=== PATIENT | female | born 1930 | race Caucasian/White ===

== ENCOUNTER 2017-08-28 22:14 | Inpatient (IN) | payer OTHER ==
[~2017-08-28] VITALS: Ht 152.4 cm; Wt 88.0 kg
[2017-08-28 23:10] LABS: BASOPHIL % 0.5 % (0-2); PLATELET COUNT 201 x10^3mcL (130-400)
[2017-08-28 23:33] LABS: ALKALINE PHOSPHATASE 56 U/L (46-116); ALT/SGPT 34 U/L (14-59); AST/SGOT 33 U/L (15-37); BILIRUBIN TOTAL 0.2 mg/dL (0.20-1.00); CALCIUM 9.4 mg/dL (8.5-10.1); CARBON DIOXIDE 26.4 mmol/L (21-32); CHLORIDE SERUM 107 mmol/L (98-107); CREATININE SERUM 1.5 mg/dL (0.6-1.0); POTASSIUM SERUM 3.3 mmol/L (3.5-5.1); SODIUM SERUM 144 mmol/L (136-145); TOTAL PROTEIN, SERUM 7.3 g/dL (6.4-8.2)
[2017-08-28 23:37] LABS: ALBUMIN 3.1 g/dL (3.4-5.0); CK-MB 0.7 ng/mL (0-3.6)
[2017-08-28 23:40] LABS: GLUCOSE SERUM 37 mg/dL (74-106)
[2017-08-29] MEDS ORDERED: LEVEMIR FLEX100 U/M1 SC (00:38)
[2017-08-29] MEDS ORDERED: ZESTRIL10 MG PO (00:39)
[2017-08-29] MEDS ORDERED: NOVOLOG FLEX100 U/M1 SC (00:39)
[2017-08-29] MEDS ORDERED: PROZ20 PO (00:40)
[2017-08-29] MEDS ORDERED: GABAPENTIN300 M4 GT (00:40)
[2017-08-29] MEDS ORDERED: CLOPIDOGREL75 M1 PO (00:41)
[2017-08-29] MEDS ORDERED: CALCIUM CITRATE1 TAB PO (00:42)
[2017-08-29] MEDS ORDERED: COD LIVER OIL PO (00:42)
[2017-08-29] MEDS ORDERED: ASPIR 8181 MG PO (00:43)
[2017-08-29] MEDS ORDERED: B COMPLEX1 SGL PO (00:43)
[2017-08-29] MEDS ORDERED: LIPITOR40 MG PO (00:44)
[2017-08-29] MEDS ORDERED: FERROUS SULFAT325 M2 PO (00:44)
[2017-08-29] MEDS ORDERED: CEPHALEXIN500 MG PO (00:45)
[2017-08-29 01:34] VITALS: BP 156/44
[2017-08-29 02:54] LABS: T3 TOTAL 1.08 ng/mL
[2017-08-29 02:56] LABS: RED BLOOD CELLS 3.21 M/mm3 (4.10-5.10)
[2017-08-29 02:57] LABS: FREE T4 0.89 ng/dL (0.76-1.46); FREE THYROXINE INDEX 2.3 ug/dL (1.4-4.5); T4(THYROXINE) 6.8 ug/dL (4.7-13.3)
[2017-08-29 03:08] LABS: MAGNESIUM 2.2 mg/dL (1.8-2.4); PHOSPHOROUS 3.4 mg/dL (2.5-4.9)
[2017-08-29 03:15] LABS: IRON 110 ug/dL (50-170); TOTAL IRON BINDING CAPACITY 364 ug/dL (250-450)
[2017-08-29 04:01] LABS: CHOLESTEROL/HDL RATIO 1.5
[2017-08-29 06:13] VITALS: BP 150/51
[2017-08-29 08:28] LABS: microscopic required? YES; urine erythrocyte 1+ (NEGATIVE)
[2017-08-29 08:50] VITALS: BP 132/65
[2017-08-29 11:40] VITALS: BP 124/40
[2017-08-29 13:33] LABS: BASOPHIL % 0.1 % (0-2); PLATELET COUNT 169 x10^3mcL (130-400); RED CELL DISTRIBUTION WIDTH 13.9 % (11.5-14.5)
[2017-08-29 13:34] LABS: CALCIUM 8.1 mg/dL (8.5-10.1); CARBON DIOXIDE 27.2 mmol/L (21-32); CHLORIDE SERUM 104 mmol/L (98-107); CREATININE SERUM 1.5 mg/dL (0.6-1.0); GLUCOSE SERUM 260 mg/dL (74-106); SODIUM SERUM 138 mmol/L (136-145)
[2017-08-29 13:49] LABS: POTASSIUM SERUM 5.6 mmol/L (3.5-5.1)
[2017-08-29 17:04] LABS: CALCIUM 8.3 mg/dL (8.5-10.1); CARBON DIOXIDE 26.2 mmol/L (21-32); CHLORIDE SERUM 106 mmol/L (98-107); CREATININE SERUM 1.4 mg/dL (0.6-1.0); GLUCOSE SERUM 205 mg/dL (74-106); SODIUM SERUM 139 mmol/L (136-145)
[2017-08-29 17:07] LABS: POTASSIUM SERUM 5.7 mmol/L (3.5-5.1)
[2017-08-29 18:13] VITALS: BP 130/47
[2017-08-29] MEDS ORDERED: LEVEMIR FLEX100 U/M1 SQ (18:23)
[2017-08-29] MEDS ORDERED: NOVOLOG FLEX100 U/M1 SQ (18:24)
[2017-08-29 21:14] VITALS: BP 127/49
[2017-08-30 05:19] VITALS: BP 127/46
[2017-08-30 07:41] LABS: CALCIUM 7.8 mg/dL (8.5-10.1); CARBON DIOXIDE 25.4 mmol/L (21-32); CHLORIDE SERUM 107 mmol/L (98-107); CREATININE SERUM 1.4 mg/dL (0.6-1.0); GLUCOSE SERUM 221 mg/dL (74-106); POTASSIUM SERUM 4.6 mmol/L (3.5-5.1); SODIUM SERUM 141 mmol/L (136-145)
[2017-08-30 07:51] LABS: BASOPHIL % 0.4 % (0-2); PLATELET COUNT 154 x10^3mcL (130-400); RED CELL DISTRIBUTION WIDTH 14.3 % (11.5-14.5)
[2017-08-30 09:22] VITALS: BP 145/46
[2017-08-30 12:43] VITALS: BP 148/53
[2017-08-30 12:44] VITALS: Ht 152.4 cm; Wt 88.0 kg
[2017-08-30 17:14] VITALS: BP 172/55
[2017-08-30 21:37] VITALS: BP 121/46
[2017-08-31 05:14] VITALS: BP 141/57
[2017-08-31 07:14] LABS: BASOPHIL % 0.4 % (0-2); PLATELET COUNT 140 x10^3mcL (130-400); RED CELL DISTRIBUTION WIDTH 14.3 % (11.5-14.5)
[2017-08-31 07:32] LABS: CALCIUM 8.4 mg/dL (8.5-10.1); CARBON DIOXIDE 24.6 mmol/L (21-32); CHLORIDE SERUM 107 mmol/L (98-107); CREATININE SERUM 1.6 mg/dL (0.6-1.0); GLUCOSE SERUM 217 mg/dL (74-106); MAGNESIUM 1.9 mg/dL (1.8-2.4); PHOSPHOROUS 3.8 mg/dL (2.5-4.9); POTASSIUM SERUM 4.4 mmol/L (3.5-5.1); SODIUM SERUM 141 mmol/L (136-145)
[2017-08-31 14:11] VITALS: BP 96/65
[2017-08-31 16:29] VITALS: BP 89/40
[2017-08-31 21:53] VITALS: BP 132/66
[2017-09-01 01:38] LABS: PLATELET COUNT 147 x10^3mcL (130-400); RED CELL DISTRIBUTION WIDTH 13.5 % (11.5-14.5)
[2017-09-01 02:05] LABS: ALKALINE PHOSPHATASE 50 U/L (46-116); ALT/SGPT 14 U/L (14-59); AST/SGOT 42 U/L (15-37); BILIRUBIN TOTAL 0.41 mg/dL (0.20-1.00); CALCIUM 8.4 mg/dL (8.5-10.1); CARBON DIOXIDE 22.1 mmol/L (21-32); CHLORIDE SERUM 103 mmol/L (98-107); CREATININE SERUM 2.3 mg/dL (0.6-1.0); GLUCOSE SERUM 256 mg/dL (74-106); POTASSIUM SERUM 4.3 mmol/L (3.5-5.1); SODIUM SERUM 137 mmol/L (136-145); TOTAL PROTEIN, SERUM 6.4 g/dL (6.4-8.2)
[2017-09-01 02:22] LABS: ALBUMIN 2.5 g/dL (3.4-5.0)
[2017-09-01 02:42] LABS: BAND NEUTROPHIL 7 % (0-10); BASOPHIL 0 % (0-2); MONOCYTE 3 % (0-7); SEGMENTED NEUTROPHILS 89 % (37-75)
[2017-09-01 02:46] LABS: PLATELET MORPHOLOGY PLATELETS NORMAL
[2017-09-01 02:48] LABS: rbc morphology (normal/abnorm) ABNORMAL (NORMAL)
== END 2017-09-01 04:10 | disposition expired | DRG 917 ==
LOC: ED 22:14 → DU 08-29 00:05
PROVIDERS: Emergency Medicine; Family Medicine; Student in an Organized Health Care Education/Training Program
DX: T38.3X1A Poisoning by insulin and oral hypoglycemic [antidiabetic] drugs, accidental (unintentional), initial encounter (principal); N17.0 Acute kidney failure with tubular necrosis; G93.41 Metabolic encephalopathy; J69.0 Pneumonitis due to inhalation of food and vomit; K85.90 Acute pancreatitis without necrosis or infection, unspecified; E44.0 Moderate protein-calorie malnutrition; N39.0 Urinary tract infection, site not specified; D68.69 Other thrombophilia; E11.649 Type 2 diabetes mellitus with hypoglycemia without coma; E11.65 Type 2 diabetes mellitus with hyperglycemia; M94.0 Chondrocostal junction syndrome [Tietze]; E86.0 Dehydration; E11.51 Type 2 diabetes mellitus with diabetic peripheral angiopathy without gangrene; E11.42 Type 2 diabetes mellitus with diabetic polyneuropathy; D64.9 Anemia, unspecified; Z68.39 Body mass index [BMI] 39.0-39.9, adult; Z95.2 Presence of prosthetic heart valve; Z95.1 Presence of aortocoronary bypass graft; Z95.5 Presence of coronary angioplasty implant and graft; Z87.891 Personal history of nicotine dependence; Z79.4 Long term (current) use of insulin; Z66 Do not resuscitate; Y92.009 Unspecified place in unspecified non-institutional (private) residence as the place of occurrence of the external cause
CPT/HCPCS: 36600; 82962; 83880; 84439; 94150; 97110-GP; 97116-GP; 97530-GP; J0696; J1644; J1815; J1940; J2405; J2543; J3490; J7030; J7620; Q0092